=== PATIENT | female | born 1990 | race Caucasian/White ===

== ENCOUNTER 2016-06-21 20:04 | Emergency (ER) | payer SELFPAY ==
[2016-06-21 22:35] VITALS: BP 113/86
== END 2016-06-21 22:35 | disposition home or self-care (01) ==
LOC: ED 20:04
DX: L23.9 Allergic contact dermatitis, unspecified cause (principal)
CPT/HCPCS: J1100; J1200

== ENCOUNTER 2016-12-21 16:26 | Emergency (ER) | payer SELFPAY ==
[~2016-12-21] VITALS: Ht 149.9 cm; Wt 144.2 kg
[2016-12-21 17:06] VITALS: BP 134/92
== END 2016-12-21 18:35 | disposition home or self-care (01) ==
LOC: ED 16:26
DX: M25.562 Pain in left knee (principal); R03.0 Elevated blood-pressure reading, without diagnosis of hypertension; J45.909 Unspecified asthma, uncomplicated
CPT/HCPCS: J1885

== ENCOUNTER 2017-09-03 01:33 | Emergency (ER) | payer SELFPAY ==
[~2017-09-03] VITALS: Ht 149.9 cm; Wt 134.3 kg
[2017-09-03 01:51] VITALS: Ht 149.9 cm; Wt 134.3 kg
[2017-09-03 02:28] LABS: BASOPHIL % 0.8 % (0-2); PLATELET COUNT 207 x10^3mcL (130-400); RED CELL DISTRIBUTION WIDTH 12.9 % (11.5-14.5)
[2017-09-03 02:31] LABS: UA SPECIFIC GRAVITY 1.025 (1.005-1.035); microscopic required? YES; urine erythrocyte 3+ (NEGATIVE)
[2017-09-03 02:47] LABS: CALCIUM 9.3 mg/dL (8.5-10.1); CARBON DIOXIDE 27.4 mmol/L (21-32); CHLORIDE SERUM 105 mmol/L (98-107); CREATININE SERUM 0.7 mg/dL (0.6-1.0); GFR1 > 60 mL/min; GLUCOSE SERUM 109 mg/dL (74-106); POTASSIUM SERUM 3.2 mmol/L (3.5-5.1); SODIUM SERUM 138 mmol/L (136-145)
[2017-09-03 02:52] LABS: ALBUMIN 3.4 g/dL (3.4-5.0); ALKALINE PHOSPHATASE 123 U/L (46-116); ALT/SGPT 15 U/L (14-59); AST/SGOT 23 U/L (15-37); LIPASE 128 IU/L (73-393); TOTAL PROTEIN, SERUM 8.1 g/dL (6.4-8.2)
[2017-09-03 03:15] VITALS: BP 122/72
== END 2017-09-03 03:58 | disposition home or self-care (01) ==
LOC: ED 01:33
PROVIDERS: Emergency Medicine
DX: K80.20 Calculus of gallbladder without cholecystitis without obstruction (principal); E87.6 Hypokalemia; R03.0 Elevated blood-pressure reading, without diagnosis of hypertension; J45.909 Unspecified asthma, uncomplicated; R07.89 Other chest pain
CPT/HCPCS: 36415; J1885; Q0092; Q0162

== ENCOUNTER 2018-01-06 17:03 | Emergency (ER) | payer MEDICAID ==
[~2018-01-06] VITALS: Ht 149.9 cm; Wt 130.6 kg
[2018-01-06 17:05] VITALS: Ht 149.9 cm; Wt 130.6 kg
[2018-01-06 20:00] VITALS: BP 126/70
== END 2018-01-06 20:00 | disposition home or self-care (01) ==
LOC: ED 17:03
DX: M79.2 Neuralgia and neuritis, unspecified (principal); J45.909 Unspecified asthma, uncomplicated

== ENCOUNTER 2018-09-30 18:55 | Emergency (ER) | payer SELFPAY ==
[~2018-09-30] VITALS: Ht 149.9 cm; Wt 140.2 kg
[2018-09-30 19:17] VITALS: Ht 149.9 cm; Wt 140.2 kg
[2018-09-30 20:02] LABS: BASOPHIL % 0.8 % (0-2); PLATELET COUNT 209 x10^3mcL (130-400); RED CELL DISTRIBUTION WIDTH 14.1 % (11.5-14.5)
[2018-09-30 20:07] LABS: CALCIUM 8.6 mg/dL (8.5-10.1); CARBON DIOXIDE 29.2 mmol/L (21-32); CHLORIDE SERUM 103 mmol/L (98-107); CREATININE SERUM 0.8 mg/dL (0.6-1.0); GFR1 > 60 mL/min; GLUCOSE SERUM 96 mg/dL (74-106); POTASSIUM SERUM 3.6 mmol/L (3.5-5.1); SODIUM SERUM 139 mmol/L (136-145)
[2018-09-30 20:12] LABS: ALKALINE PHOSPHATASE 127 U/L (46-116); ALT/SGPT 12 U/L (14-59); AST/SGOT 14 U/L (15-37); BILIRUBIN TOTAL 0.79 mg/dL (0.20-1.00); LIPASE 126 IU/L (73-393)
[2018-09-30 20:15] LABS: ALBUMIN 3.3 g/dL (3.4-5.0); TOTAL PROTEIN, SERUM 8.5 g/dL (6.4-8.2)
[2018-09-30 21:17] LABS: UA SPECIFIC GRAVITY 1.025 (1.005-1.035); microscopic required? YES; urine erythrocyte 3+ (NEGATIVE)
[2018-09-30 21:59] VITALS: BP 126/78
== END 2018-09-30 21:59 | disposition home or self-care (01) ==
LOC: ED 18:55
PROVIDERS: Emergency Medicine
DX: K80.20 Calculus of gallbladder without cholecystitis without obstruction (principal); R10.11 Right upper quadrant pain; N92.0 Excessive and frequent menstruation with regular cycle; J45.909 Unspecified asthma, uncomplicated
CPT/HCPCS: 36415; J1885; Q0162

== ENCOUNTER 2019-01-01 22:03 | Emergency (ER) | payer SELFPAY ==
[~2019-01-01] VITALS: Ht 149.9 cm; Wt 142.9 kg
[2019-01-01 22:12] VITALS: Ht 149.9 cm; Wt 142.9 kg
[2019-01-01 23:49] LABS: CALCIUM 8.3 mg/dL (8.5-10.1); CARBON DIOXIDE 27.9 mmol/L (21-32); CHLORIDE SERUM 106 mmol/L (98-107); CREATININE SERUM 0.7 mg/dL (0.6-1.0); GFR1 > 60 mL/min; GLUCOSE SERUM 99 mg/dL (74-106); POTASSIUM SERUM 3.3 mmol/L (3.5-5.1); SODIUM SERUM 143 mmol/L (136-145)
[2019-01-01 23:53] LABS: ALBUMIN 3.2 g/dL (3.4-5.0); ALKALINE PHOSPHATASE 112 U/L (46-116); ALT/SGPT 31 U/L (14-59); AST/SGOT 30 U/L (15-37); BILIRUBIN TOTAL 1.1 mg/dL (0.20-1.00); LIPASE 104 IU/L (73-393); TOTAL PROTEIN, SERUM 8.3 g/dL (6.4-8.2)
[2019-01-01 23:56] LABS: BASOPHIL % 0.2 % (0-2); PLATELET COUNT 179 x10^3mcL (130-400); RED CELL DISTRIBUTION WIDTH 13.9 % (11.5-14.5)
[2019-01-02 00:59] VITALS: BP 124/81
== END 2019-01-02 00:59 | disposition home or self-care (01) ==
LOC: ED 22:03
PROVIDERS: Emergency Medicine
DX: A08.4 Viral intestinal infection, unspecified (principal); E87.6 Hypokalemia
CPT/HCPCS: 36415; Q0162